=== PATIENT | male | born 1945 | race Caucasian/White ===

== ENCOUNTER 2020-02-06 06:43 | Inpatient (IN) | payer MEDICARE ==
[~2020-02-06] VITALS: Ht 172.7 cm; Wt 68.0 kg
--- NOTE | 2020-02-06 07:00 | NUR ---
RN NOTE- PT ARRIVED ON UNIT VIA ABDIAZIZ. REPORT GIVEN. ADMISSION PROCESS INITIATED
--- NOTE | 2020-02-06 07:00 | NUR ---
RN NOTE- CONTRABAND ITEMS ONE PAIR SCISSORS AND ONE PAIR NAIL CLIPPERS PLACED INTO COFFEE CONTAINER OF PTS AND LOCKED IN PT LOCKER INSIDE PT SUITCASE
--- NOTE | 2020-02-06 07:00 | NUR ---
MEDICAL DEVICE ENGINEER NOTE- PT ADMITTED 5150 DTS AFTER CUTTING LT WRIST. PT ADMITTING DX PSYCHOSIS, BIPOLAR, LACERATION LT WRIST, AND PROSTATE PROBLEMS W URINARY RETENTION. PT ON FACE TO FACE ASSESSMENT W B/P- 139/71, HR- 82, RR- 20, T- 98.1 AND SATURATION AT 96% RA. PT IS 5'8" AND 150 POUNDS. HE HAS NKA, IS FULL CODE AND IS ALERT ORIENTED TO PERSON PLACE TIME AND PURPOSE. HE IS CURRENTLY HOMELESS.PT STATES 'I WAS A GOOD PERSON BUT I'M A PIECE OF CRAP AND WISH I WERE ." VERBALIZES + SI AT PRESENT. NO PLAN. DOES CONTRACT FOR SAFETY AT FACILITY. PT HAS PMHX OF GALLSTONES, APPENDICITIS, FRACTURED MIDDLE FINGER RT HAND AND HTN. PT STATES HE HAS PROSTATE PROBLEMS AND URINARY RETENTION. HE ALSO HAS OCCASIONAL CONSTIPATION. LAST BM YESTERDAY. VOIDING REGULARLY. COVID TEST NEG. PT ORIENTED TO UNIT, PT RIGHTS PAMPHLET GIVEN . NOTIFIED OF ADMISSION. ORDERS GIVEN AND COMPLIED WITH. MRSA SWAB DONE. BREAKFAST ORDERED AND GIVEN. NEEDS ATTENDED. SKIN CHECK DONE. PHOTOS TAKEN AND WOUND CONSULT ORDERED. PROVIDE THERAPEUTIC ENVIRONMENT . MONITOR FOR SAFETY.
[2020-02-06 08:00] VITALS: BP 139/71
[2020-02-06] MEDS ORDERED: MAGNESIUM HYDROXIDE 30 ML UDC PO PRN (08:00)
[2020-02-06] MEDS ORDERED: TEMAZEPAM 7.5 MG CAPSULE PO PRN (08:00)
[2020-02-06] MEDS ORDERED: ACETAMINOPHEN 325 MG TABLET PO PRN (08:00)
[2020-02-06] MEDS ORDERED: MAG HYDROX/AL HYDROX/SIMETH 30 ML UDC PO PRN (08:00)
[2020-02-06] MEDS ORDERED: BLOOD SUGAR DIAGNOSTIC 1 EACH STRIP IN ONE (08:00)
[2020-02-06] MEDS: LORAZEPAM 0.5 MG TABLET PO PRN (08:59)
--- NOTE | 2020-02-06 08:59 | NUR ---
RN NOTE- PT W ANXIETY. ATIVAN 0.5 MG GIVEN
--- NOTE | 2020-02-06 09:00 | NUR ---
RN NOTE- PT ARRIVED ON UNIT STATES HE WISHES HE WERE . CONTRACTS FOR SAFETY NEEDS ATTENDED CLM PASSIVE DIRECTABLE DENIES [facility] HI. +SI THOUGH NO PLAN. MONITOR FOR SAFETY
--- NOTE | 2020-02-06 10:50 | NUR ---
RN NOTE- MANAGER DOCUMENT SALAZAR NOTIFIED OF ADMISSION MED RECON NEEDED COMPLETION
--- NOTE | 2020-02-06 11:16 | NUR ---
WOUND CARE CONSULT: PT PRESENTS WITH MULTIPLE SCABS AND SCARS ALL OVER BODY WELL SUTURED LACERATION TO LEFT WRIST, PRESENT ON ADMISSION. RECOMMENDATIONS MADE FOR SKIN PROTECTION. DISCUSSED WITH NURSING STAFF. WILL SEE PRN. ANDREA IN AGREEMENT WITH PLAN OF CARE. Addendum: 02/06/20 at 1117 by KECIA PETERSON WNDNU Amended: Links added.
--- NOTE | 2020-02-06 11:54 | NUR ---
Initial Discharge Plan: Per pt. [place] [address], ([address] Per patient he no longer wants to continue experiencing homelessness and stated he would like placement if possible. ALYSON will verify eligibility for placement and follow up. ALYSON will work with pt. and MD regarding appropriate discharge planning
[2020-02-06 16:00] VITALS: BP 132/66
--- NOTE | 2020-02-06 16:00 | NUR ---
RN NOTE- INSPECTOR FIREARMS SALAZAR AT UNIT AND BEDSIDE ASSESSING / STATED MED RECON COMPLETION
[2020-02-06] MEDS ORDERED: HYDROCORTISONE CR 30 GM TUBE RC PRN (18:30)
[2020-02-06 20:02] VITALS: BP 115/73
[2020-02-06 20:06] VITALS: BP 137/70
[2020-02-06] MEDS: TAMSULOSIN 0.4 MG CAP.SR.24H PO SCH (21:29)
[2020-02-07 08:00] VITALS: BP 146/86
[2020-02-07] MEDS: ESCITALOPRAM OXALATE (10 MG) 10 MG TABLET PO SCH (09:01)
[2020-02-07] MEDS: DOCUSATE SODIUM 100 MG CAPSULE PO SCH (09:02)
[2020-02-07 10:05] LABS: ALBUMIN 2.8 g/dL (3.4-5.0); BILIRUBIN,TOTAL 0.4 mg/dL (0.2-1.0); CALCIUM, SERUM 8.1 mg/dL (8.5-10.1); CHOLESTEROL 127 mg/dL (<200); CREATININE 0.9 mg/dL (0.6-1.3); HDL CHOLESTEROL 46 mg/dL (40-60); LDL 70 mg/dL (0-99); POTASSIUM 3.9 mmol/L (3.5-5.1); TOTAL PROTEIN, SERUM 6.6 g/dL (6.4-8.2); TRIGLYCERIDES 74 mg/dL (30-150)
[2020-02-07 16:00] VITALS: BP 153/76
[2020-02-07 19:52] VITALS: BP 155/68
[2020-02-07] MEDS: TAMSULOSIN 0.4 MG CAP.SR.24H PO SCH (21:20)
[2020-02-08] MEDS: ESCITALOPRAM OXALATE (10 MG) 10 MG TABLET PO SCH (07:46)
[2020-02-08] MEDS: DOCUSATE SODIUM 100 MG CAPSULE PO SCH (07:46)
[2020-02-08 08:00] VITALS: BP 138/78
--- NOTE | 2020-02-08 09:58 | NUR ---
GPS/RN PT HAD THE ARGUMENTS WITH THE OTHER PATIENT THREATENING TO HIT. NOT REDIRECTABLE. PT STATES THAT HE HEARING VOICES. STATES : " I AM OFF PHASE..." . REFUSED PO MEDICATION. DR ROBERTSON CALLED FOR THE ORDERS. NEW ORDERS RECEIVED AND CARRIED OUT.
[2020-02-08] MEDS ORDERED: OLANZAPINE 10 MG VIAL IM ONE (10:00)
[2020-02-08] MEDS ORDERED: LORAZEPAM INJ 2 MG/ML VIAL IM ONE (10:00)
[2020-02-08 16:00] VITALS: BP 119/54
--- NOTE | 2020-02-08 19:38 | NUR ---
GPS-RN NOTE: UNWITNESSED FALL INCIDENT RECEIVED PATIENT IN BED AWAKE ALERT. NO APPARENT DISTRESS NOTED. WHEN CHECKED PATIENT TO DO WEEKLY PICTURES. NOTICED THE BUMP ON THE RIGHT SIDE OF THE HEAD. SKIN IS INTACT, NO BLEEDING NOTED. WHEN ASKED WHEN IT HAPPENED, PATIENT CLAIMED THAT "HE FELL JUST NOW" AND PT. SUDDENLY CHANGED HIS STATEMENT "I MIGHT HAVE HIT MY HEAD IN THE WALL WHEN I WENT TO THE BATHROOM. BED ALARM WAS ON. PATIENT DENIES PAIN/DISCOMFORT AT THIS TIME. PAGED ARTURO FERRARI REGARDING UNWITNESSED FALL INCIDENT. AWAITING CALL BACK FROM POWER AND RECOVERY SHIFT ENGINEER. 21:08 - ARTURO FERRARI CALLED BACK, RECEIVED ORDER TO DO CT SCAN OF THE HEAD WITHOUT CONTRAST. WILL CARRY OUT ORDER. NURSE SUGAR REFINER ABHI MADE AWARE. SUMANTH COON NOTIFIED WELL. VITALS SIGNS NOTED AND RECORDED BP 128/66, R19, P59, T98.0 O2 SATURATION 98% ON ROOM AIR. NO CHANGES IN LOC. PATIENT DENIES HEADACHE, NAUSEA/VOMITING. BED ALARM IS ON AT ALL TIMES. SAFETY PRECAUTIONS IMPLEMENTED. WILL CONTINUE TO MONITOR Q15MIN ROUNDS FOR SAFETY AND BEHAVIOR. WILL NOTIFY PT'S BROTHER IN THE MORNING REGARDING THE INCIDENT. Addendum: 02/09/20 at 0722 by MARISOL BLOCK RN 0600 - CALLED PATIENT'S BROTHER CURTIS ELLIOTT ([phone]) PHONE THAT WAS GIVEN/PROVIDED IS NOT WORKING.
[2020-02-08 20:00] VITALS: BP 128/66
[2020-02-08] MEDS: TAMSULOSIN 0.4 MG CAP.SR.24H PO SCH (21:04)
[2020-02-09 08:00] VITALS: BP 130/69
[2020-02-09] MEDS: DOCUSATE SODIUM 100 MG CAPSULE PO SCH (08:08)
[2020-02-09] MEDS: ESCITALOPRAM OXALATE (10 MG) 10 MG TABLET PO SCH (08:08)
--- NOTE | 2020-02-09 09:00 | NUR ---
RN NOTE- PT ALERT ORIENTED TO PERSON PLACE TIME AND PURPOSE. DENIES SI HI AH VH. SMALL HEMATOMA TO RT SIDE FOREHEAD. DENIES PAIN. STATED HE HAS NO PAIN HEADACHE OR DISCOMFORT OF ANY KIND. GUARDED PASSIVE W FLAT AFFECT. MED COMPLIANT PO INTAKE FAIR
[2020-02-09] MEDS: OLANZAPINE 5 MG TABLET PO SCH (11:03)
--- NOTE | 2020-02-09 12:20 | NUR ---
RN NOTE- DRESSING CHANGE TO SUTURE SITE LFT ANTERIOR WRIST. AREA CLEANSED W NS, PAT DRY W STERILE GAUZE, DRY STERILE DSG APPLIED. INCISION AREA W ERYTHEMA THOUGH NO DEHISCENCE, NO EXUDATE, NO ODOR OR WARMTH PRESENT. ARTURO SALAZAR ORDERED BACITRACIN BID AND WOUND CARE CONSULT. COMPLIED
[2020-02-09 16:00] VITALS: BP 130/64
[2020-02-09] MEDS: BACITRACIN ZINC OINT PACKET 1 EA PACKET TP SCH (16:42)
--- NOTE | 2020-02-09 16:42 | NUR ---
RN NOTE- DRESSING CHANGE. TIRE ASSEMBLER AT BEDSIDE. CHANGED DRSG, APPLIED BACITRACIN TO STERILE GAUZE, WRAPPED W KERLIX. TAPED SECURELY
[2020-02-09 19:57] VITALS: BP 136/74
[2020-02-09] MEDS: TAMSULOSIN 0.4 MG CAP.SR.24H PO SCH (21:16)
--- NOTE | 2020-02-10 06:47 | NUR ---
GPS RN NOTES: PT AWAKE, ALERT. COOPERATIVE AT THIS TIME. . NO S/S OF DISTRESS NOTED . NO CHANGE OF CONDITION NOTED, NO BEHAVIOR PROBLEMS NOTED, ALL CARE NEEDS MET ANTICIPATED. WILL CONTINUE TO MONITOR FOR SAFETY BEHAVIOR, AND ENDORSE TO AM SHIFT FOR CONTINUITY OF CARE .
[2020-02-10 08:00] VITALS: BP 136/73
[2020-02-10] MEDS: OLANZAPINE 5 MG TABLET PO SCH (08:32)
[2020-02-10] MEDS: DOCUSATE SODIUM 100 MG CAPSULE PO SCH (08:32)
[2020-02-10] MEDS: ESCITALOPRAM OXALATE (10 MG) 10 MG TABLET PO SCH (08:32)
--- NOTE | 2020-02-10 09:00 | NUR ---
RN NOTE- ALERT ORIENTED TO PERSON PLACE TIME AND PURPOSE. DENIES SI HI AH VH. DENIES PAIN. STATED HE HAS NO PAIN HEADACHE OR DISCOMFORT OF ANY KIND. GUARDED PASSIVE W FLAT AFFECT. MED COMPLIANT PO INTAKE FAIR
[2020-02-10] MEDS: BACITRACIN ZINC OINT PACKET 1 EA PACKET TP SCH ×2 (09:02→16:26)
--- NOTE | 2020-02-10 12:00 | NUR ---
RN NOTE- DSG CHANGE TO LFT ANTERIOR WRIST. ERYTHEMA PRESENT, MINOR DISCOMFORT STATED, SOME SERO-SANQUINOUS EXUDATE NOTED. NO PURULENCE OR ODOR. BACITRACIN APPLIED STERILE 2X2 DSG APPLIED KERLEX WRAP
--- NOTE | 2020-02-10 14:18 | NUR ---
SNF Referral: ALYSON faxed a referral to [facility] and [facility] with attention to Howard to the fax number: [phone].
[2020-02-10 16:00] VITALS: BP 153/78
[2020-02-10 19:56] VITALS: BP 132/62
[2020-02-10] MEDS: TAMSULOSIN 0.4 MG CAP.SR.24H PO SCH (21:13)
--- NOTE | 2020-02-11 06:31 | NUR ---
GPS RN NOTES: PT SLEPT WELL AT NIGHT, COOPERATIVE AT THIS TIME. NO S/S OF DISTRESS NOTED . NO CHANGE OF CONDITION NOTED, NO BEHAVIOR PROBLEMS NOTED, ALL CARE NEEDS MET ANTICIPATED. WILL CONTINUE TO MONITOR FOR SAFETY , BEHAVIOR, AND ENDORSE TO AM SHIFT FOR CONTINUITY OF CARE .
[2020-02-11 08:00] VITALS: BP 132/67
[2020-02-11] MEDS: DOCUSATE SODIUM 100 MG CAPSULE PO SCH (08:18)
[2020-02-11] MEDS: OLANZAPINE 5 MG TABLET PO SCH (08:18)
[2020-02-11] MEDS: ESCITALOPRAM OXALATE (10 MG) 10 MG TABLET PO SCH (08:18)
[2020-02-11] MEDS: BACITRACIN ZINC OINT PACKET 1 EA PACKET TP SCH ×2 (08:55→16:04)
--- NOTE | 2020-02-11 09:04 | NUR ---
SNF Contact: SW contacted Howard ([phone]) from [facility] and inquired if the pt was accepted to their facility. He stated that the pt is accepted upon discharge from the hospital.
[2020-02-11 16:00] VITALS: BP 148/78
--- NOTE | 2020-02-11 19:46 | NUR ---
GPS RN NOTES RECEIVED PATIENT IN BED, ASLEEP, EASILY AROUSED, NO S/S OF COMPLAINTS. PATIENT DOES NOT DISPLAY ANY S/S OF DISTRESS. BREATHING EVEN AND UNLABORED. PT IS ALERT AND ORIENTED X 3 . MED COMPLIANT. PT IS CALM, COOPERATIVE, FLAT/ BLUNT AFFECT. PATIENT DENIES SI AND HI. SAFETY PRECAUTIONS IN PLACE, BED IN LOWEST POSITION, LOCKED, AND CALL LIGHT KEPT WITHIN REACH. WILL CONTINUE TO MONITOR.
[2020-02-11 20:00] VITALS: BP 158/75
[2020-02-11 20:12] VITALS: BP 158/75
[2020-02-11] MEDS: TAMSULOSIN 0.4 MG CAP.SR.24H PO SCH (21:25)
[2020-02-12 08:00] VITALS: BP 157/75
[2020-02-12] MEDS: DOCUSATE SODIUM 100 MG CAPSULE PO SCH (08:15)
[2020-02-12] MEDS: ESCITALOPRAM OXALATE (10 MG) 10 MG TABLET PO SCH (08:15)
[2020-02-12] MEDS: OLANZAPINE 5 MG TABLET PO SCH (08:15)
[2020-02-12] MEDS: BACITRACIN ZINC OINT PACKET 1 EA PACKET TP SCH ×2 (08:17→16:27)
--- NOTE | 2020-02-12 14:33 | NUR ---
Family Contact: SW called the pts brother, Shayne ([phone]), but after dialing the number the phone line did not connect and would end the call.
--- NOTE | 2020-02-12 14:35 | NUR ---
Family Contact: SW called the pts brother, Shayne ([phone]), but after dialing the number the phone line did not connect and would end the call.
--- NOTE | 2020-02-12 14:42 | NUR ---
Family Contact: SW called the pts brother, Shayne ([phone]), but after dialing the number the phone line did not connect and would end the call.
[2020-02-12 16:00] VITALS: BP 157/87
[2020-02-12 20:00] VITALS: BP 153/74
[2020-02-12 20:10] VITALS: BP 153/74
[2020-02-12 21:10] VITALS: BP 141/73
[2020-02-12] MEDS: TAMSULOSIN 0.4 MG CAP.SR.24H PO SCH (21:16)
[2020-02-13 08:00] VITALS: BP 149/75
[2020-02-13] MEDS: ESCITALOPRAM OXALATE (10 MG) 10 MG TABLET PO SCH (08:20)
[2020-02-13] MEDS: DOCUSATE SODIUM 100 MG CAPSULE PO SCH (08:20)
[2020-02-13] MEDS: OLANZAPINE 5 MG TABLET PO SCH (08:20)
[2020-02-13] MEDS: BACITRACIN ZINC OINT PACKET 1 EA PACKET TP SCH ×2 (09:29→17:31)
[2020-02-13 16:00] VITALS: BP 146/70
[2020-02-13 20:02] VITALS: BP 156/78
[2020-02-13] MEDS: TAMSULOSIN 0.4 MG CAP.SR.24H PO SCH (21:05)
[2020-02-14] MEDS: LORAZEPAM 0.5 MG TABLET PO PRN (04:24)
--- NOTE | 2020-02-14 04:27 | NUR ---
GPS RN NOTE: ANXIETY PT. C/O BEING ANXIOUS. ADMINISTERED ATIVAN 0.5 MG PO PRN ORDERED. WILL CONTINUE TO MONITOR FOR SAFETY AND BEHAVIOR
[2020-02-14] MEDS: OLANZAPINE 5 MG TABLET PO SCH (07:52)
[2020-02-14] MEDS: DOCUSATE SODIUM 100 MG CAPSULE PO SCH (07:52)
[2020-02-14] MEDS: ESCITALOPRAM OXALATE (10 MG) 10 MG TABLET PO SCH (07:52)
[2020-02-14 08:00] VITALS: BP 167/79
[2020-02-14] MEDS: BACITRACIN ZINC OINT PACKET 1 EA PACKET TP SCH ×2 (09:00→16:27)
[2020-02-14 16:00] VITALS: BP 121/70
[2020-02-14 21:00] VITALS: BP_SYST 132; BP_SYST 137; BP_DIAS 67; BP_DIAS 72
[2020-02-14] MEDS: TAMSULOSIN 0.4 MG CAP.SR.24H PO SCH (21:05)
[2020-02-15] MEDS: BACITRACIN ZINC OINT PACKET 1 EA PACKET TP SCH ×2 (07:36→16:58)
[2020-02-15] MEDS: ESCITALOPRAM OXALATE (10 MG) 10 MG TABLET PO SCH (07:59)
[2020-02-15] MEDS: DOCUSATE SODIUM 100 MG CAPSULE PO SCH (07:59)
[2020-02-15] MEDS: OLANZAPINE 5 MG TABLET PO SCH (07:59)
[2020-02-15 08:00] VITALS: BP 151/74
[2020-02-15 16:00] VITALS: BP 131/67
[2020-02-15 19:37] VITALS: BP 128/65
[2020-02-15] MEDS: TAMSULOSIN 0.4 MG CAP.SR.24H PO SCH (21:01)
[2020-02-16 08:00] VITALS: BP 143/69
--- NOTE | 2020-02-16 08:20 | NUR ---
SW Discharge Note: Pt was discharged to [facility] (SNF) located at [address] [place] [address], . Pt was transported via [facility] at 1300. Pts sister, Alina Boyce ([phone]), was made aware of the discharge. Upon discharge, the pt appeared to be in a euthymic mood and presented with a calm affect. Pt denied both suicidal and homicidal ideation as well as auditory and visual hallucinations. Pt appeared to be well groomed and was appropriately dressed. Pt appeared to be ambulatory with an unsteady gait. Pt signed the homeless waiver and was given resources including shelters, food cummins, showers, hot meals, mental health clinics, health clinics and substance abuse referrals. Pt will be under the care of his psychiatrist, Dr. Ragland, located at [address] [place] [address]; and deputy brand inspector, Dr. Goss, located at [address] [facility] [address] [place] [address]; . The multidisciplinary exit care form was done, printed, signed, and given to the patient.
[2020-02-16] MEDS: ESCITALOPRAM OXALATE (10 MG) 10 MG TABLET PO SCH (08:24)
[2020-02-16] MEDS: OLANZAPINE 5 MG TABLET PO SCH (08:24)
[2020-02-16] MEDS: DOCUSATE SODIUM 100 MG CAPSULE PO SCH (08:24)
--- NOTE | 2020-02-16 09:00 | NUR ---
RN NOTE- PT A BIT PARANOID, GUARDED STATES BED BUGS BITING HIM. EXAM OF SHEETS AND BED SHOW NO SIGNS OF INSECTS. NO NEW BITES NOTED ON SKIN. PT HAS RESOLVING INSECT BITES FROM PREVIOUS HOMELESSNESS THOUGH ALL ARE HEALING . PT MED COMPLIANT PO INTAKE FAIR. NO BEHAVIORAL ISSUES DENIES SI HI VH
[2020-02-16] MEDS: BACITRACIN ZINC OINT PACKET 1 EA PACKET TP SCH (09:01)
--- NOTE | 2020-02-16 09:01 | NUR ---
RN NOTE- DRSG CHANGE LFT WRIST. DECREASED ERYTHEMA, NO EXUDATE NO ODOR NO PURULENCE. BACITRACIN AND 2X2 GAUZE APPLIED TAPED SECURELY
--- NOTE | 2020-02-16 13:20 | NUR ---
RN NOTE- PT DISCHARGE AT THIS TIME TO [facility] VIA AMBULANCE. PT VS STABLE, DENIES SI HI AH VH AT PRESENT. PT ALERT ORIENTED TO PERSON PLACE TIME PURPOSE. FLAT AFFECT PT VALUABLES RETURNED AND SIGNED FOR. DISCHARGE INSTRUCTIONS AND RX PHONED TO JUANA WONG AT FACILITY. ID WRISTBAND REMOVED. PT ESCORTED OFF OF UNIT BY STAFF.
== END 2020-02-16 13:20 | DRG 885 ==
LOC: GPS 06:43
PROVIDERS: ADMIT Psychiatry & Neurology Psychiatry; ATTEND Nurse Practitioner Acute Care
DX: F33.2 Major depressive disorder, recurrent severe without psychotic features (principal); F23 Brief psychotic disorder; R45.851 Suicidal ideations; Z59.0 Homelessness; I10 Essential (primary) hypertension; N40.0 Benign prostatic hyperplasia without lower urinary tract symptoms; K59.00 Constipation, unspecified; K64.9 Unspecified hemorrhoids
CPT/HCPCS: 36415; 70450-TC; 80053-TC; 80061-TC; 82962-TC; 87081-TC; J2060; J3490

== ENCOUNTER 2023-06-01 20:06 | Inpatient (IN) | payer MEDICARE, MEDICAID ==
[~2023-06-01] VITALS: Ht 175.3 cm; Wt 68.9 kg
[2023-06-01 22:31] LABS: BASOPHILS % (AUTO) 0.7 % (0.0-2.0); EOSINOPHILS # (AUTO) 0.1 K/uL (0.0-0.7); EOSINOPHILS % (AUTO) 3.2 % (0.0-6.0); HEMATOCRIT 36 % (39-51); LYMPHOCYTES # (AUTO) 1.4 K/uL (0.8-4.8); LYMPHOCYTES % (AUTO) 34.8 % (20.0-44.0); MEAN CORPUSCULAR HEMOGLOBIN 30 PG (26.0-33.0); MEAN CORPUSCULAR HGB CONC 33 g/dl (31.0-36.0); MEAN CORPUSCULAR VOLUME 91 fL (80-96); MONOCYTES # (AUTO) 0.3 K/uL (0.1-1.30); MONOCYTES % (AUTO) 7.6 % (2.0-12.0); NEUTROPHILS # (AUTO) 2.2 K/uL (1.8-8.9); NEUTROPHILS % (AUTO) 53.7 % (43.0-81.0); PLATELET COUNT (AUTO) 154 K/uL (150-450); RED BLOOD CELL COUNT(AUTO) 3.96 MIL/uL (4.5-6.0); RED CELL DISTRIBUTION WIDTH 16.1 % (11.5-15.0); WHITE BLOOD COUNT (AUTO) 4.2 K/uL (4.3-11.0)
[2023-06-01 23:02] LABS: CALCIUM, SERUM 8.4 mg/dL (8.5-10.1); POTASSIUM 3.5 mmol/L (3.5-5.1)
[2023-06-01 23:09] LABS: BILIRUBIN,TOTAL 0.5 mg/dL (0.2-1.0); TOTAL PROTEIN, SERUM 6.8 g/dL (6.4-8.2)
[2023-06-02] MEDS ORDERED: IV NS 0.9% 1,000 ML IV PRN (00:30)
[2023-06-02] MEDS ORDERED: Z GUARD REMEDY 4 OZ OINT TP PRN (00:30)
[2023-06-02] MEDS ORDERED: POLYETHYLENE GLYCOL 3350 17 GM POWD.PACK PO PRN (00:30)
[2023-06-02] MEDS ORDERED: ACETAMINOPHEN 325 MG TABLET PO PRN (00:30)
[2023-06-02] MEDS ORDERED: ONDANSETRON HCL/PF 4 MG/2 ML VIAL IVP PRN (00:30)
[2023-06-02] MEDS ORDERED: MAGNESIUM HYDROXIDE 30 ML UDC PO PRN (00:30)
[2023-06-02] MEDS ORDERED: IOHEXOL-300 100 ML VIAL IV ONE (00:34)
[2023-06-02] MEDS ORDERED: CT SWABBABLE VALVE TRANS SET 1 EA INFUS.SET MC ONE (00:35)
[2023-06-02] MEDS ORDERED: IV NS 0.9% 250 ML IV ONE (00:35)
[2023-06-02] MEDS ORDERED: ENOXAPARIN SODIUM 40 MG/0.4 ML DISP.SYRIN SQ ONE (07:28)
[2023-06-02] MEDS: PANTOPRAZOLE 40 MG TABLET.DR PO SCH (07:29)
[2023-06-02] MEDS ORDERED: PANTOPRAZOLE 40 MG TABLET.DR PO ONE (07:29)
[2023-06-02] MEDS: ENOXAPARIN SODIUM 40 MG/0.4 ML DISP.SYRIN SQ SCH (08:25)
[2023-06-02] MEDS ORDERED: MIRT-91 PO (08:33)
[2023-06-02] MEDS ORDERED: CHOL200059 PO (08:33)
[2023-06-02] MEDS ORDERED: ACET-2605 PO (08:33)
[2023-06-02] MEDS ORDERED: LOPE-195 PO (08:33)
[2023-06-02] MEDS ORDERED: ASCO-340 PO (08:33)
[2023-06-02] MEDS ORDERED: MULT-213 PO (08:33)
[2023-06-02] MEDS ORDERED: ZINC220C6 PO (08:33)
[2023-06-02] MEDS ORDERED: DOCU100C36 PO (08:33)
[2023-06-02] MEDS ORDERED: TAMS-12 PO (08:33)
[2023-06-02] MEDS ORDERED: MELA3TAB41 PO (08:33)
[2023-06-02 09:24] LABS: BASOPHILS % (AUTO) 0.9 % (0.0-2.0); EOSINOPHILS # (AUTO) 0.1 K/uL (0.0-0.7); EOSINOPHILS % (AUTO) 2.9 % (0.0-6.0); HEMATOCRIT 37 % (39-51); HEMOGLOBIN 12.3 g/dL (13.5-17.5); LYMPHOCYTES # (AUTO) 1.2 K/uL (0.8-4.8); LYMPHOCYTES % (AUTO) 28.3 % (20.0-44.0); MEAN CORPUSCULAR HEMOGLOBIN 30 PG (26.0-33.0); MEAN CORPUSCULAR HGB CONC 34 g/dl (31.0-36.0); MEAN CORPUSCULAR VOLUME 90 fL (80-96); MONOCYTES # (AUTO) 0.3 K/uL (0.1-1.30); MONOCYTES % (AUTO) 7.8 % (2.0-12.0); NEUTROPHILS # (AUTO) 2.6 K/uL (1.8-8.9); NEUTROPHILS % (AUTO) 60.1 % (43.0-81.0); PLATELET COUNT (AUTO) 160 K/uL (150-450); RED BLOOD CELL COUNT(AUTO) 4.05 MIL/uL (4.5-6.0); RED CELL DISTRIBUTION WIDTH 15.9 % (11.5-15.0); WHITE BLOOD COUNT (AUTO) 4.4 K/uL (4.3-11.0)
[2023-06-02 09:41] LABS: CALCIUM, SERUM 8.5 mg/dL (8.5-10.1); CREATININE 0.8 mg/dL (0.6-1.3); MAGNESIUM 1.8 mg/dL (1.8-2.4); POTASSIUM 4.1 mmol/L (3.5-5.1)
[2023-06-02 10:13] LABS: THYROID STIMULATING HORMONE 3.005 uIU/mL (0.358-3.74)
[2023-06-02 15:00] VITALS: BP 145/76; TEMP 97.7; O2SAT 97
[2023-06-02 16:00] VITALS: BP 130/53; TEMP 97.6; O2SAT 96
[2023-06-02 20:00] VITALS: BP 150/63; TEMP 98; O2SAT 98
[2023-06-02] MEDS: TAMSULOSIN 0.4 MG CAP.SR.24H PO SCH (21:42)
[2023-06-03 07:00] VITALS: BP 148/63; TEMP 97.5; O2SAT 97
[2023-06-03 08:05] LABS: EOSINOPHILS # (AUTO) 0.2 K/uL (0.0-0.7); EOSINOPHILS % (AUTO) 5.7 % (0.0-6.0); HEMATOCRIT 35 % (39-51); HEMOGLOBIN 11.9 g/dL (13.5-17.5); LYMPHOCYTES # (AUTO) 1.2 K/uL (0.8-4.8); MEAN CORPUSCULAR HEMOGLOBIN 31 PG (26.0-33.0); MEAN CORPUSCULAR HGB CONC 34 g/dl (31.0-36.0); MEAN CORPUSCULAR VOLUME 90 fL (80-96); MONOCYTES # (AUTO) 0.3 K/uL (0.1-1.30); MONOCYTES % (AUTO) 9.3 % (2.0-12.0); NEUTROPHILS # (AUTO) 1.7 K/uL (1.8-8.9); PLATELET COUNT (AUTO) 153 K/uL (150-450); RED BLOOD CELL COUNT(AUTO) 3.88 MIL/uL (4.5-6.0); RED CELL DISTRIBUTION WIDTH 15.9 % (11.5-15.0); WHITE BLOOD COUNT (AUTO) 3.6 K/uL (4.3-11.0)
[2023-06-03 08:42] LABS: CALCIUM, SERUM 8.5 mg/dL (8.5-10.1); CREATININE 0.9 mg/dL (0.6-1.3); MAGNESIUM 1.9 mg/dL (1.8-2.4); PHOSPHORUS 3.5 mg/dL (2.5-4.9); POTASSIUM 3.6 mmol/L (3.5-5.1)
[2023-06-03] MEDS: PANTOPRAZOLE 40 MG TABLET.DR PO SCH (08:46)
[2023-06-03] MEDS: ENOXAPARIN SODIUM 40 MG/0.4 ML DISP.SYRIN SQ SCH (08:47)
[2023-06-03 16:00] VITALS: BP 148/55; TEMP 98.4; O2SAT 98
[2023-06-03 20:00] VITALS: BP 147/62; TEMP 97.9; O2SAT 97
[2023-06-03] MEDS: TAMSULOSIN 0.4 MG CAP.SR.24H PO SCH (22:13)
[2023-06-03] MEDS: TEMAZEPAM 7.5 MG CAPSULE PO PRN (22:14)
[2023-06-04 07:00] VITALS: BP 150/74; TEMP 98.4; O2SAT 98
[2023-06-04 07:29] LABS: BASOPHILS % (AUTO) 1.2 % (0.0-2.0); EOSINOPHILS # (AUTO) 0.2 K/uL (0.0-0.7); EOSINOPHILS % (AUTO) 5.5 % (0.0-6.0); HEMATOCRIT 34 % (39-51); HEMOGLOBIN 11.7 g/dL (13.5-17.5); LYMPHOCYTES # (AUTO) 1.6 K/uL (0.8-4.8); LYMPHOCYTES % (AUTO) 43.3 % (20.0-44.0); MEAN CORPUSCULAR HEMOGLOBIN 31 PG (26.0-33.0); MEAN CORPUSCULAR HGB CONC 35 g/dl (31.0-36.0); MEAN CORPUSCULAR VOLUME 90 fL (80-96); MONOCYTES # (AUTO) 0.4 K/uL (0.1-1.30); NEUTROPHILS # (AUTO) 1.5 K/uL (1.8-8.9); PLATELET COUNT (AUTO) 138 K/uL (150-450); RED BLOOD CELL COUNT(AUTO) 3.79 MIL/uL (4.5-6.0); RED CELL DISTRIBUTION WIDTH 15.7 % (11.5-15.0); WHITE BLOOD COUNT (AUTO) 3.8 K/uL (4.3-11.0)
[2023-06-04] MEDS: PANTOPRAZOLE 40 MG TABLET.DR PO SCH (08:27)
[2023-06-04] MEDS: ENOXAPARIN SODIUM 40 MG/0.4 ML DISP.SYRIN SQ SCH (08:40)
[2023-06-04 09:09] LABS: CALCIUM, SERUM 8.8 mg/dL (8.5-10.1); CREATININE 0.9 mg/dL (0.6-1.3); MAGNESIUM 1.9 mg/dL (1.8-2.4); PHOSPHORUS 3.8 mg/dL (2.5-4.9)
[2023-06-04] MEDS: ENSURE ENLIVE CHOC 237 ML CAN PO SCH ×2 (12:17→17:11)
[2023-06-04 16:00] VITALS: BP 135/67; TEMP 98.4; O2SAT 97
[2023-06-04 20:00] VITALS: BP 147/67; TEMP 98.1; O2SAT 95
[2023-06-04] MEDS: TAMSULOSIN 0.4 MG CAP.SR.24H PO SCH (21:08)
[2023-06-04] MEDS: TEMAZEPAM 7.5 MG CAPSULE PO PRN (21:08)
[2023-06-05 08:00] VITALS: BP_SYST 137; BP_SYST 149; BP_DIAS 48; BP_DIAS 63; TEMP 97.3; TEMP 97.7; O2SAT 96; O2SAT 99
[2023-06-05] MEDS: ENSURE ENLIVE CHOC 237 ML CAN PO SCH (08:00)
[2023-06-05] MEDS: ENOXAPARIN SODIUM 40 MG/0.4 ML DISP.SYRIN SQ SCH (09:01)
[2023-06-05] MEDS: PANTOPRAZOLE 40 MG TABLET.DR PO SCH (09:02)
== END 2023-06-05 10:00 | DRG 641 ==
LOC: ER 20:20 → TRANSITION 06-02 05:57 → MED 06-02 10:32
PROVIDERS: ADMIT Nurse Practitioner Family; ATTEND Internal Medicine
DX: R62.7 Adult failure to thrive (principal); E44.1 Mild protein-calorie malnutrition; E86.0 Dehydration; D64.9 Anemia, unspecified; F32.9 Major depressive disorder, single episode, unspecified; I10 Essential (primary) hypertension; Z90.49 Acquired absence of other specified parts of digestive tract; N40.0 Benign prostatic hyperplasia without lower urinary tract symptoms; F41.9 Anxiety disorder, unspecified; K59.00 Constipation, unspecified; E88.09 Other disorders of plasma-protein metabolism, not elsewhere classified; K64.9 Unspecified hemorrhoids; D72.819 Decreased white blood cell count, unspecified
CPT/HCPCS: 36415; 71045-TC; 80048-TC; 80053-TC; 82728-TC; 83540-TC; 83735-TC; 84100-TC; 84443-TC; 84484-TC; 85025-TC; 86301; A4223; G0378; J1650; J7030; J7050; Q9967